=== PATIENT | male | born 1930 | race Caucasian/White ===

== ENCOUNTER 2018-10-20 18:20 | Observation (INO) | payer OTHER ==
[~2018-10-20] VITALS: Ht 172.7 cm; Wt 72.6 kg
[~2018-10-20 18:20] MED LIST: COMBIVENT RESPIM4 GM; Zithromax250 MG PO
[2018-10-20 18:43] LABS: BASOPHILS ABSOLUTE AUTO 0.06 K/mm3 (0.00-0.23); BASOPHILS PERCENT AUTO 1 % (0-2); EOSINOPHILS ABSOLUTE AUTO 0.11 K/mm3 (0.00-0.68); EOSINOPHILS PERCENT AUTO 1 % (0-6); Hematocrit 40.7 % (37.0-53.0); Hemoglobin 13.6 g/dL (13.5-17.5); IMMATURE GRAN ABSOLUTE AUTO 0.02 K/mm3 (0.00-0.10); IMMATURE GRAN PERCENT AUTO 0 % (0-1); LYMPHOCYTES ABSOLUTE AUTO 1.82 K/mm3 (0.84-5.20); LYMPHOCYTES PERCENT AUTO 23 % (21-46); MONOCYTES ABSOLUTE AUTO 0.74 K/mm3 (0.16-1.47); MONOCYTES PERCENT AUTO 9 % (4-13); Mean Corpuscular HGB 30.8 pg (26.0-34.0); Mean Corpuscular HGB Conc 33.4 g/dL (31.5-36.5); Mean Corpuscular Volume 92 fL (80-100); Mean Platelet Volume 9.7 fL (9.1-12.4); NEUTROPHILS ABSOLUTE AUTO 5.16 K/mm3 (1.96-9.15); NEUTROPHILS PERCENT AUTO 65 % (41-73); Platelet Count 324 K/mm3 (150-400); RDW Coefficient Variation 12.8 % (11.7-14.2); RDW Standard Deviation 43.7 fL (35.1-46.3); Red Blood Cell Count 4.41 M/mm3 (4.30-5.90); White Blood Cell Count 7.91 K/mm3 (4.00-11.30)
[2018-10-20 18:59] LABS: Alanine Aminotransfer (ALT/SGP 21 U/L (12-78); Albumin/Globulin Ratio 1.3 (0.8-1.8); Alk Phos 97 U/L (50-136); Anion Gap 7 mmol/L (6-16); Aspartate Aminotrans (AST/SGOT 18 U/L (12-37); Bilirubin, Total 0.5 mg/dL (0.1-1.0); Blood Urea Nitrogen 12 mg/dL (8-24); Bun/Creatinine Ratio 13.1 (12.0-20.0); CO2, Blood 27 mmol/L (21-32); Calcium, Blood 8.9 mg/dL (8.5-10.1); Chloride, Blood 106 mmol/L (98-108); Creatinine, Blood 0.92 mg/dL (0.60-1.20); Glomerular Filtration Rate >60 (60-); Glucose, Blood 84 mg/dL (70-99); Potassium, Blood 3.7 mmol/L (3.5-5.5); Sodium, Blood 140 mmol/L (136-145); Troponin I <0.015 ng/mL (0.000-0.040)
[2018-10-20 19:54] LABS: Base Excess Venous 0.4 mmol/L; Bicarbonate Venous 23.8 mmol/L (24.0-30.0); PCO2 Venous 46.7 mmHg (38-42); PO2 Venous 38.8 mmHg (38-42); pH Blood Venous 7.35 (7.34-7.37)
[2018-10-20] MEDS ORDERED: AMLO5 PO (20:21)
[2018-10-20] MEDS ORDERED: CLOP75 PO (20:21)
[2018-10-20] MEDS ORDERED: LISI20 PO (20:22)
[2018-10-20] MEDS ORDERED: Neurontin600 MG PO (20:27)
[2018-10-20] MEDS ORDERED: IPRATRO INH (20:28)
[2018-10-20] MEDS ORDERED: ALBUTEROL INH (20:28)
[2018-10-21 02:37] LABS: CPK Creatine Kinase 79 U/L (39-308); Troponin I <0.015 ng/mL (0.000-0.040)
--- NOTE | 2018-10-21 04:43 | NUR ---
ADMISSION NOTE PT ARRIVED TO UNIT AT 2204 VIA W/C. AMBULATED INDEPENDENTLY TO BED, STEADY GAIT. MULTIPLE FAMILY MEMBERS AT BEDSIDE HELPING WITH ANSWERING ADMISSION ASSESSMENT Q'S WITH PT PERMISSION. PT IS A&O X 4, VSS UPON ARRIVAL. RESP E/U ON RA, DENIES CP AT THIS TIME. ASSUMING CARE OF PT.
--- NOTE | 2018-10-21 04:44 | NUR ---
SHIFT SUMMARY PT ADMITTED EARLIER IN SHIFT FOR CP. PT REPORTS HAVING CP THAT STARTED YESTERDAY AROUND 4PM AND LASTED 2 HRS BEFORE COMING TO THE HOSPITAL. PT HAS NOT HAD ANY CP SINCE ARRIVING TO THE HOSPITAL. A&O X 4, INDEPENDENT IN RM WHEN FAMILY IS AT BEDSIDE OTHERWISE PT IS SBA. TELE IN PLACE; NSR c PVCs AND PACs @ 67 BPM PER GUEST SERVICES ASSISTANT. 2+ BLE EDEMA, PT REPORTS THIS IS CHRONIC. RESP E/U ON RA AT REST, DYSPNEA c EXERTION. PT REPORTS USING HOME O2, 2L VIA NC PRN. REPORTS HE "NEEDS IT A FEW TIMES A DAY AT HOME". LS DIM T/O. SERIAL TROPONINS NEG. PT REMAINS FREE OF CHEST PAIN. PT RESTING IN BED AT THIS TIME, DAUGHTER AT BEDSIDE. CALL LT IN REACH. WILL CONT TO MONITOR AND PROVIDE CARE UNTIL PRESUMED BY ONCOMING RN.
--- NOTE | 2018-10-21 05:07 | NUR ---
HYPOTENSION BP 84/59 THIS AM PT IS SLEEPING WHILE SEWER TAKES BP READING. PT GETS UP TO GO TO THE BR AND BP RETAKE IS DONE, BP 102/68 UPON RISING. WILL CONT TO MONITOR.
[2018-10-21] MEDS ORDERED: NITR.4SL SL (10:07)
[2018-10-21] MEDS ORDERED: ASPI81CH PO (10:07)
[2018-10-21] MEDS ORDERED: OMEP20ER PO (10:08)
--- NOTE | 2018-10-21 10:38 | NUR ---
SHIFT SUMMARY PT AWAKE SITTING IN CHAIR AT BS, DURING SHIFT REPORT. ADMITTED FOR CP RADIATING DOWN L ARM. NO C/O CP TODAY, "JUST HUNGRY". TELE MX REPORTED SR W/PAC'S AND PVC'S @ 66. HX OF HTN, STENTS IN L LEG, AND COPD. CURRENTLY ON RA. PER SHIFT REPORT, PT USES 2L O2 PRN AT HOME. DR ARANGO IN TO SEE PT THIS AM. D/C ORDERS WRITTEN. PT INFORMED. D/C EDU, MEDICATIONS, AND FOLLOW UP APPOINTMENTS DISCUSSED WITH PT AND DAUGHTERS AT BS. PT TO HAVE OUTPT STRESS TEST. MESSAGE LEFT TO MOST OFFICE TO CALL PT ON TUESDAY TO SCHEDULE STRESS TEST APPOINTMENT. PT VERBALIZED UNDERSTANDING. IV TO LFA D/C'D WNL'S. TELE D/C'D AND RETURNED TO PCU. PT ASSISTED OUT TO CAR VIA W/C, WITH DAUGHTERS AT BS. PT AMBULATED AROUND RM, WAITING TO GO HOME. NO C/O.
--- NOTE | 2018-10-23 10:32 | NUR ---
[facility] STATED THAT [facility] WILL CALL THE PATIENT TO SET UP AN APPOINTMENT WITHIN ONE WEEK OF DISCHARGE.
== END 2018-10-21 10:27 | disposition home or self-care (01) ==
LOC: ER 18:20 → MEDS 18:21 → ENPENDDIS 10-21 09:09 → MEDS 10-21 10:27
PROVIDERS: Emergency Medicine; ADMIT Internal Medicine
DX: I20.9 Angina pectoris, unspecified (principal); I10 Essential (primary) hypertension; J44.9 Chronic obstructive pulmonary disease, unspecified; I73.9 Peripheral vascular disease, unspecified; G62.9 Polyneuropathy, unspecified; D64.9 Anemia, unspecified; Z79.899 Other long term (current) drug therapy; Z79.02 Long term (current) use of antithrombotics/antiplatelets
CPT/HCPCS: 36415; 71045; 80053; 82550; 82803; 83690; 83880; 84484; 85025; 93005; 93010; 96372; 96374; 96375; 99285-25; G0378; J1650; J2405; J7030

== ENCOUNTER 2020-02-02 22:02 | Emergency (ER) | payer OTHER ==
[~2020-02-02] VITALS: Ht 175.3 cm; Wt 68.0 kg
[~2020-02-02 22:02] MED LIST changes: +ALBUTEROL INH; +AMLO5 PO; +ASPI81CH PO; +CLOP75 PO; +IPRATRO INH; +LISI20 PO; +NITR.4SL SL; +Neurontin600 MG PO; +OMEP20ER PO
[2020-02-02 22:44] LABS: BASOPHILS ABSOLUTE AUTO 0.04 K/mm3 (0.00-0.23); BASOPHILS PERCENT AUTO 0 % (0-2); EOSINOPHILS ABSOLUTE AUTO 0.06 K/mm3 (0.00-0.68); EOSINOPHILS PERCENT AUTO 1 % (0-6); Hematocrit 42.7 % (37.0-53.0); IMMATURE GRAN ABSOLUTE AUTO 0.02 K/mm3 (0.00-0.10); IMMATURE GRAN PERCENT AUTO 0 % (0-1); LYMPHOCYTES ABSOLUTE AUTO 1.65 K/mm3 (0.84-5.20); LYMPHOCYTES PERCENT AUTO 19 % (21-46); MONOCYTES ABSOLUTE AUTO 0.87 K/mm3 (0.16-1.47); MONOCYTES PERCENT AUTO 10 % (4-13); Mean Corpuscular HGB 30.2 pg (26.0-34.0); Mean Corpuscular HGB Conc 32.8 g/dL (31.5-36.5); Mean Corpuscular Volume 92 fL (80-100); Mean Platelet Volume 9.6 fL (9.1-12.4); NEUTROPHILS ABSOLUTE AUTO 6.29 K/mm3 (1.96-9.15); NEUTROPHILS PERCENT AUTO 71 % (41-73); Platelet Count 312 K/mm3 (150-400); RDW Coefficient Variation 12.3 % (11.7-14.2); RDW Standard Deviation 41.9 fL (35.1-46.3); Red Blood Cell Count 4.64 M/mm3 (4.30-5.90); White Blood Cell Count 8.93 K/mm3 (4.00-11.30)
[2020-02-02 23:13] LABS: Alanine Aminotransfer (ALT/SGP 19 U/L (12-78); Albumin/Globulin Ratio 1.3 (0.8-1.8); Alk Phos 91 U/L (50-136); Anion Gap 2 mmol/L (6-16); Aspartate Aminotrans (AST/SGOT 20 U/L (12-37); Bilirubin, Total 0.4 mg/dL (0.1-1.0); Blood Urea Nitrogen 20 mg/dL (8-24); Bun/Creatinine Ratio 22.7 (12.0-20.0); CO2, Blood 31 mmol/L (21-32); Calcium, Blood 9.5 mg/dL (8.5-10.1); Chloride, Blood 105 mmol/L (98-108); Creatinine, Blood 0.88 mg/dL (0.60-1.20); Glomerular Filtration Rate >60 (60-); Glucose, Blood 92 mg/dL (70-99); Potassium, Blood 4.2 mmol/L (3.5-5.5); Sodium, Blood 138 mmol/L (136-145)
[2020-02-02] MEDS ORDERED: Voltaren100 GM TOP (23:50)
[2020-02-02] MEDS ORDERED: HYDR1TAB94 PO (23:50)
== END 2020-02-03 00:13 | disposition home or self-care (01) ==
LOC: ER 22:02
PROVIDERS: Emergency Medicine
DX: M79.604 Pain in right leg (principal); M79.605 Pain in left leg; J44.9 Chronic obstructive pulmonary disease, unspecified; I10 Essential (primary) hypertension; R20.2 Paresthesia of skin; Z79.899 Other long term (current) drug therapy; Z79.02 Long term (current) use of antithrombotics/antiplatelets; Z79.82 Long term (current) use of aspirin
CPT/HCPCS: 36415; 72131; 80053; 83880; 85025; 93971; 99284-25; A9270-GY